=== PATIENT | male | born 1975 | race Caucasian/White ===

== ENCOUNTER 2017-03-25 00:10 | Emergency (ER) | payer OTHER ==
[~2017-03-25] VITALS: Ht 193 cm; Wt 138.3 kg
[~2017-03-25 00:10] MED LIST: GLIPIZIDE; GLUCOPHAGE1000 MG PO; GLUCOTROL5 MG PO; METFORMIN500 MG PO; UNKNOWN BP MED
[2017-03-25 00:28] VITALS: BP 160/100
--- NOTE | 2017-03-25 00:57 | NUR ---
PT TAKEN TO BED 5
--- NOTE | 2017-03-25 01:00 | NUR ---
PT CAME TO ER WITH C/O ABDOMINAL PAIN ASSOCIATED WITH REDNESS AND SWELLING BELOW HIS BELLY FOR 3 DAYS.
--- NOTE | 2017-03-25 01:21 | NUR ---
Dr. Whalen evaluating patient at bedside.
[2017-03-25] MEDS ORDERED: LIDOCAINE 1% 500 MG/50 ML VIAL INJ ONE (01:30)
[2017-03-25] MEDS ORDERED: oxyCODONE/APAP 5/325 MG 1 TAB TAB PO ONE (01:30)
--- NOTE | 2017-03-25 02:30 | NUR ---
DR. VINCENT AT BEDSIDE DOING THE PROCEDURE.
[2017-03-25 02:50] VITALS: BP 149/84
--- NOTE | 2017-03-25 02:50 | NUR ---
Patient discharged with v/s stable. Written and verbal after care instructions given and explained. Patient alert, oriented and verbalized understanding of instructions. Ambulatory with steady gait. All questions addressed prior to discharge. ID band removed. Patient advised to follow up with PMD. Rx of KEFLEX 500MG PO, MOTRIN 800MG PO given. Patient educated on indication of medication including possible reaction and side effects. Opportunity to ask questions provided and answered.
[2017-05-31] MEDS ORDERED: LOSARTAN POTASS50 MG PO (11:23)
[2017-05-31] MEDS ORDERED: JANUVIA100 MG PO (11:23)
[2017-05-31] MEDS ORDERED: LIPITOR40 MG PO (11:23)
[2017-05-31] MEDS ORDERED: ATENOLOL25 M1 PO (11:23)
== END 2017-03-25 02:50 | disposition home or self-care (01) ==
LOC: MED 00:10
DX: L02.211 Cutaneous abscess of abdominal wall (principal); E11.9 Type 2 diabetes mellitus without complications; J45.909 Unspecified asthma, uncomplicated; I10 Essential (primary) hypertension
CPT/HCPCS: 10060; 99284; J2001

== ENCOUNTER 2017-03-25 22:47 | Emergency (ER) | payer OTHER ==
[~2017-03-25] VITALS: Ht 193 cm; Wt 138.3 kg
[2017-03-25 22:58] VITALS: BP 147/90
--- NOTE | 2017-03-26 00:59 | NUR ---
PT TAKEN TO BED 5
--- NOTE | 2017-03-26 01:17 | NUR ---
41/M c/o cellulitis to right lower abdomen x1 day. Pt states he was seen here last night and had it drained. No packing was placed, antibiotics given. Pt states "It's still the same." Pt c/o 710 pain, also c/o elevated blood pressure. BP 153/97, HR 80. Pt c/o headache, denies vision changes. c/o N/V. AOX4, ambulatory with steady gait. Pt is calm and relaxed. No signs of distress noted. VSS. No drainage noted from wound.
--- NOTE | 2017-03-26 01:23 | NUR ---
Dr. Whalen evaluating patient at bedside.
--- NOTE | 2017-03-26 02:25 | NUR ---
Patient appears to be resting comfortably in bed. Vital Signs within normal limits. Respirations even and unlabored.
--- NOTE | 2017-03-26 02:32 | NUR ---
Pt requesting pain medication. Pain 05/07. Dr. Whalen made aware.
--- NOTE | 2017-03-26 02:51 | NUR ---
Ultrasound at bedside.
[2017-03-26] MEDS ORDERED: HYDROmorphone 1 MG/ML AMP IVP ONE ×2 (02:55→04:10)
--- NOTE | 2017-03-26 03:15 | NUR ---
Patient received pain medication. Pt is more relaxed and c/o 3/10 pain. No signs of distress noted. VSS.
[2017-03-26] MEDS ORDERED: LIDOCAINE 1% 500 MG/50 ML VIAL INJ ONE (03:50)
--- NOTE | 2017-03-26 04:35 | NUR ---
Dr. Whalen at bedside for I&D.
--- NOTE | 2017-03-26 05:00 | NUR ---
PT FAMILY CALLED FOR SPECIFICATIONS CHECKER-ETA 20MINS
[2017-03-26 05:37] VITALS: BP 115/66
[2017-05-31] MEDS ORDERED: LIPITOR40 MG PO (11:23)
[2017-05-31] MEDS ORDERED: LOSARTAN POTASS50 MG PO (11:23)
[2017-05-31] MEDS ORDERED: ATENOLOL25 M1 PO (11:23)
[2017-05-31] MEDS ORDERED: JANUVIA100 MG PO (11:23)
== END 2017-03-26 05:38 | disposition home or self-care (01) ==
LOC: MED 22:47
DX: L02.211 Cutaneous abscess of abdominal wall (principal); L03.311 Cellulitis of abdominal wall; E11.65 Type 2 diabetes mellitus with hyperglycemia; I10 Essential (primary) hypertension; E66.9 Obesity, unspecified; Z68.37 Body mass index [BMI] 37.0-37.9, adult
CPT/HCPCS: 10061; 36415; 76536; 80053; 83605; 85025; 87040; 96374; 96376; 99285; J1170; J2001; Q0092

== ENCOUNTER 2017-06-02 00:12 | Emergency (ER) | payer OTHER ==
[~2017-06-02] VITALS: Ht 193 cm; Wt 139.3 kg
[~2017-06-02 00:12] MED LIST changes: +ATEN25TA2 PO; +ATOR40TA PO; +GLIP5TAB4 PO; -GLIPIZIDE; -GLUCOPHAGE1000 MG PO; -GLUCOTROL5 MG PO; +LOSA50TA39 PO; +METF1000 PO; -METFORMIN500 MG PO; +SITA100T8 PO; -UNKNOWN BP MED
[2017-06-02 00:47] VITALS: BP 146/102
--- NOTE | 2017-06-02 04:17 | NUR ---
PATIENT AMBULATED TO ER BED 3.
--- NOTE | 2017-06-02 04:20 | NUR ---
PT WAS EVALUATED LAST SUNDAY FOR ABSCESS ON RIGHT INNER THIGH AND WAS GIVEN KEFLEX,TODAY MORE SWOLLEN AND PAINFUL, HX DM AND HYPERTENSION, PT IS AAOX4 WITH EVEN AND STEADY GAIT; LUNGS CLEAR BL; HR EVEN AND REGULAR; PT DENIES ANY FEVER, CP, SOB, OR COUGH ,DENIES N/V/D; SKIN IS PINK/WARM/DRY; PATIENT STATES PAIN OF 10/10 AT THIS TIME; VSS; PATIENT POSITIONED FOR COMFORT; HOB ELEVATED; BEDRAILS UP X2; BED DOWN. ER MD MADE AWARE OF PT STATUS.
[2017-06-02] MEDS ORDERED: KETOROLAC 60 MG/2 ML VIAL IM ONE (04:30)
--- NOTE | 2017-06-02 04:30 | NUR ---
PATIENT BEING EVALUATED BY DR. VINCENT.
[2017-06-02] MEDS ORDERED: LIDOCAINE/EPI 2% 1:100000 20 ML VIAL INJ ONE (04:52)
[2017-06-02] MEDS: oxyCODONE/APAP 5/325 MG 1 TAB TAB PO ONE ×2 (04:52→05:08)
--- NOTE | 2017-06-02 05:15 | NUR ---
I&D DONE BY DR. CONTRERAS AND RESIDENT, PATIENT TOLERATED WELL.
[2017-06-02 05:32] VITALS: BP 138/72
--- NOTE | 2017-06-02 05:32 | NUR ---
Patient discharged with v/s stable. Written and verbal after care instructions given and explained. Patient alert, oriented and verbalized understanding of instructions. Ambulatory with steady gait. All questions addressed prior to discharge. ID band removed. Patient advised to follow up with PMD. Patient educated on indication of medication including possible reaction and side effects. Opportunity to ask questions provided and answered.
== END 2017-06-02 05:32 | disposition home or self-care (01) ==
LOC: MED 00:12
DX: L02.31 Cutaneous abscess of buttock (principal); L03.317 Cellulitis of buttock; E11.9 Type 2 diabetes mellitus without complications; I10 Essential (primary) hypertension
CPT/HCPCS: 10060; 96372; 99284; J1885; J2001; 10061; 99283

== ENCOUNTER 2017-08-17 21:05 | Emergency (ER) | payer OTHER ==
[~2017-08-17] VITALS: Ht 193 cm; Wt 131.5 kg
[2017-08-17 21:22] VITALS: BP 150/101
--- NOTE | 2017-08-17 21:55 | NUR ---
Patient to bed 11.
[2017-08-17] MEDS ORDERED: LIDOCAINE 1% 500 MG/50 ML VIAL INJ SCH (22:25)
[2017-08-17] MEDS ORDERED: oxyCODONE/APAP 5/325 MG 1 TAB TAB PO ONE (22:25)
--- NOTE | 2017-08-17 22:25 | NUR ---
42/M PRESENTS TO THE ER C/O PAIN, REDNESS AND SWELLING TO THE RT LOWER ABDOMEN. PMH DM, HTN, CELLULITIS. PT IS AA&O X4. PT STATES SYMPTOMS STARTED 3 DAYS AGO AND DESCRIBES PAIN THROBBING, SHARP, CONSTANT PAIN THAT IS WORSE UPON MOVEMENT. PT STATES STARTING TWO YEARS AGO STARTED HAVING RECURRING CELLULITIS EVERY 3-4 MONTHS. PT DENIES FEVER, N/V/D, SOB. ABDOMEN IS SOFT, ROUND, AND TENDER TO RT LOWER SIDE, BOWEL SOUNDS ARE ACTIE IN ALL 4 QUADRANTS. LOWER RT ABDOMEN IS SWOLLEN, RED AND WARM TO TOUCH. PT IS LYING IN BED. ER MD NOTIFIED OF PT STATUS.
--- NOTE | 2017-08-17 22:25 | NUR ---
Dr. Borrero evaluating patient at bedside.
--- NOTE | 2017-08-17 22:30 | NUR ---
Dr. Wilcox at bedside for procedure.
[2017-08-17] MEDS ORDERED: LIDOCAINE 1% ED 50 ML ONE (22:36)
[2017-08-17] MEDS ORDERED: HYDROmorphone PFS 2 MG/ML SYR IM ONE (22:55)
[2017-08-17] MEDS ORDERED: ceFAZolin 1,000 MG VIAL IM ONE (23:50)
[2017-08-17] MEDS ORDERED: NEOMYCIN/POLYMYXIN/BACITRACIN 0.9 GM/1 PKT TP ONE (23:56)
[2017-08-18] MEDS ORDERED: WATER STERILE 10 ML MC ONE (00:06)
--- NOTE | 2017-08-18 00:34 | NUR ---
Patient discharged with v/s stable. Written and verbal after care instructions given and explained. Patient alert, oriented and verbalized understanding of instructions. Ambulatory with steady gait. All questions addressed prior to discharge. ID band removed. Patient advised to follow up with PMD. Rx of DOXYCYCLINE 100MG, NORCO 10MG given. Patient educated on indication of medication including possible reaction and side effects. Opportunity to ask questions provided and answered.
[2017-08-18 00:36] VITALS: BP 176/105
== END 2017-08-18 00:34 | disposition home or self-care (01) ==
LOC: MED 21:05
DX: L02.211 Cutaneous abscess of abdominal wall (principal); L03.311 Cellulitis of abdominal wall; E11.9 Type 2 diabetes mellitus without complications; I10 Essential (primary) hypertension
CPT/HCPCS: 10060; 96372; 99284; J0690; J1170; J2001

== ENCOUNTER 2017-10-20 04:43 | Emergency (ER) | payer OTHER ==
[~2017-10-20] VITALS: Ht 193 cm; Wt 131.5 kg
[2017-10-20 05:09] VITALS: BP 176/100
--- NOTE | 2017-10-20 05:15 | NUR ---
PATIENT RETURNED BACK TO [facility],IN STABLE CONDITION, A/W FOR BED, ERMD NOTED.
--- NOTE | 2017-10-20 05:20 | NUR ---
PATIENT IS A 42 Y/O MALE WHO PRESENTS TO THE ED C/O ABSCESS. PT STATES, "I ALWAYS GET THESE ABSCESSES AND THEY HURT." PT REPORTS 10/10 SHARP ABD PAIN THAT DOES NOT RADIATE. PT DENIES CP, SOB, N/V/D. NOTED REDNESS TO THE RIGHT ABDOMEN. PT AAOX4, RR EVEN/UNLABORED. PT REPOSITIONED FOR COMFORT, BED IN LOWEST POSITION. ER MD DR. ORONA NOTIFIED. WILL CONTINUE TO MONITOR.
--- NOTE | 2017-10-20 07:23 | NUR ---
Pt report given to LULU BUI. Transfer of care at this time.
[2017-10-20] MEDS ORDERED: LIDOCAINE 2% 1000 MG/50 ML VIAL INJ ONE (07:55)
[2017-10-20] MEDS: NACL 0.9% 2,000 ML IV SCH (08:02)
[2017-10-20] MEDS ORDERED: VANCOMYCIN 1,000 MG VIAL ONE (08:16)
[2017-10-20] MEDS: VANCOMYCIN 1,000 MG in DEXTROSE 5% 250 ML IV ONE (08:20)
[2017-10-20] MEDS: MORPHINE SULFATE 4 MG/ML SYR IVP ONE (08:21)
[2017-10-20] MEDS: ONDANSETRON 4 MG/2 ML VIAL IVP ONE (08:22)
[2017-10-20 09:26] LABS: EOSINOPHILS # (AUTO) 0.2 K/uL (0-0.4); HEMOGLOBIN 14.2 g/dL (12.0-18.0); MEAN CORPUSCULAR HGB CONC 33 g/dL (33-37); WHITE BLOOD COUNT (AUTO) 8.9 K/uL (4.8-10.8)
[2017-10-20 09:28] LABS: ANION GAP 9.9 (8-16); BASOPHILS # (AUTO) 0.4 K/uL (0.00-0.22); BASOPHILS % (AUTO) 4.9 % (0.0-2.0); CARBON DIOXIDE 27.5 mmol/L (21-32); CREATININE 0.6 mg/dL (0.7-1.3); EOSINOPHILS % (AUTO) 2.3 % (0.0-4.0); HEMATOCRIT 43.2 % (36-52); LYMPHOCYTES # (AUTO) 2.6 K/uL (2.0-11.5); LYMPHOCYTES % (AUTO) 28.8 % (20.5-51.1); MEAN CORPUSCULAR HEMOGLOBIN 28 pg (27-31); MEAN CORPUSCULAR VOLUME 84 fL (80-94); MONOCYTES # (AUTO) 0.6 K/uL (0.8-1.0); MONOCYTES % (AUTO) 7.3 % (1.7-9.3); NEUTROPHILS # (AUTO) 5.1 K/uL (1.8-7.7); NEUTROPHILS % (AUTO) 56.7 % (42.2-75.2); PLATELET COUNT (AUTO) 139 K/uL (140-450); POTASSIUM 3.4 mmol/L (3.5-5.1); RED BLOOD CELL COUNT(AUTO) 5.15 MIL/uL (4.20-6.10); RED CELL DISTRIBUTION WIDTH 12.7 % (11.6-13.7)
--- NOTE | 2017-10-20 09:36 | NUR ---
Lidocaine given by TABATHA Sesay.
[2017-10-20 09:41] LABS: ALBUMIN 3.4 g/dL (3.4-5.0); TOTAL BILIRUBIN 0.5 mg/dL (0.0-1.0)
[2017-10-20 10:50] VITALS: BP 165/98
--- NOTE | 2017-10-20 10:52 | NUR ---
Patient discharged with v/s stable. Written and verbal after care instructions given and explained. Patient alert, oriented and verbalized understanding of instructions. Ambulatory with steady gait. All questions addressed prior to discharge. ID band removed. Patient advised to follow up with PMD. Rx of bactrium, hibiclens given. Patient educated on indication of medication including possible reaction and side effects. Opportunity to ask questions provided and answered.
== END 2017-10-20 10:52 | disposition home or self-care (01) ==
LOC: MED 04:43
DX: L02.211 Cutaneous abscess of abdominal wall (principal); E11.9 Type 2 diabetes mellitus without complications; I10 Essential (primary) hypertension; Z79.84 Long term (current) use of oral hypoglycemic drugs; Z79.899 Other long term (current) drug therapy
CPT/HCPCS: 10060; 36415; 80053; 82948; 85025; 87040; 87070; 87075; 96365; 96375; 99284; J2001; J2270; J2405; J3370; J7030

== ENCOUNTER 2017-12-09 20:57 | Inpatient (IN) | payer OTHER ==
[~2017-12-09] VITALS: Ht 193 cm; Wt 127.0 kg
[~2017-12-09 20:57] MED LIST changes: +PROPOFOL 200 MG/20 ML VIAL IV ONE; +VANCOMYCIN 1,000 MG VIAL ONE
[2017-12-09 21:00] VITALS: BP 205/116
--- NOTE | 2017-12-09 21:01 | NUR ---
PT TAKEN TO BED 10
--- NOTE | 2017-12-09 21:05 | NUR ---
PT PRESENTS TO ER C/O CHEST PAIN AND RT LOWER ABD ABCESS. PT STATES CHEST PAIN STARTED EARLIER TODAY, PAIN IS GENERALIZED TO CHEST "HEAVINESS". PT HAS ABCESS TO RT LOWER ABD, SKIN IS WARM, RED, DRY, AMD INTACT. PT STATES HE HAS HAD ABCESS FOR "FEW DAYS" AND IT "ALTERNATES SIDES". PT REPORTS HX OF ABCESS FORMATION, DM, HTN. PT DENIES SOB, N/V/D AT THIS TIME.
--- NOTE | 2017-12-09 21:07 | NUR ---
Patient being evaluated by physician at bedside.
[2017-12-09] MEDS ORDERED: VANCOMYCIN 1,000 MG in DEXTROSE 5% 250 ML IV ONE (21:10)
[2017-12-09] MEDS ORDERED: HYDROmorphone PFS 2 MG/ML SYR IVP ONE (21:10)
[2017-12-09] MEDS ORDERED: LIDOCAINE/EPI 2% 1:100000 20 ML VIAL INJ ONE (21:10)
[2017-12-09] MEDS ORDERED: VANCOMYCIN 1,000 MG VIAL ONE (21:17)
[2017-12-09] MEDS ORDERED: INSULIN REGULAR, HUMAN 100 UNIT/ML VIAL IVP ONE (21:20)
--- NOTE | 2017-12-09 21:30 | NUR ---
DR ALVES AT BEDSIDE FOR PROCEDURE.
[2017-12-09] MEDS ORDERED: LEVOFLOXACIN 500 MG/D5W PREMIX 100 ML IV ONE (21:40)
[2017-12-09] MEDS ORDERED: MAG SULF 2000 MG/WATER PREMIX 50 ML IV PRN (21:45)
[2017-12-09] MEDS ORDERED: HYDROcodone/APAP 5/325 MG 1 TAB TAB PO PRN ×2 (21:45)
[2017-12-09] MEDS ORDERED: hydrALAZINE 20 MG/ML VIAL IVP ONE (21:45)
[2017-12-09] MEDS ORDERED: DEXTROSE 50% 50 ML SYR IVP PRN (21:45)
[2017-12-09] MEDS ORDERED: ONDANSETRON 4 MG/2 ML VIAL IVP PRN (21:45)
[2017-12-09] MEDS ORDERED: IPRATROPIUM 0.02% 0.5 MG/2.5 ML NEBU INH PRN (21:45)
[2017-12-09] MEDS ORDERED: diphenhydrAMINE 50 MG/ML VIAL IVP PRN (21:45)
[2017-12-09] MEDS ORDERED: MAGNESIUM OXIDE 400 MG TAB PO PRN (21:45)
[2017-12-09] MEDS ORDERED: guaiFENesin DM 200/20 MG-10 ML 10 ML UDC PO PRN (21:45)
[2017-12-09] MEDS ORDERED: ENALAPRILAT 2.5 MG/2 ML VIAL IVP ONE (21:45)
[2017-12-09] MEDS ORDERED: LORazepam 2 MG/ML VIAL IVP PRN (21:45)
[2017-12-09] MEDS ORDERED: BISACODYL 10 MG SUPP RC PRN (21:45)
[2017-12-09] MEDS ORDERED: ALUMINUM HYD/MAG/SIMETHICONE 30 ML UDC PO PRN (21:45)
[2017-12-09] MEDS ORDERED: ALBUTEROL 0.083% 2.5 MG/3 ML NEBU INH PRN (21:45)
[2017-12-09] MEDS ORDERED: POTASSIUM CHLORIDE 10 MEQ TABER PO PRN (21:45)
[2017-12-09] MEDS ORDERED: SODIUM PHOSPHATE 118 ML ENEM RC PRN (21:45)
[2017-12-09] MEDS ORDERED: POTASSIUM CHLORIDE 40 MEQ, LIDOCAINE 1% 25 MG in NACL 0.9% 250 ML IV PRN (21:45)
[2017-12-09] MEDS ORDERED: VANCOMYCIN PER PHARMACY MC PRN (21:45)
[2017-12-09] MEDS ORDERED: ACETAMINOPHEN 325 MG TAB PO PRN (21:45)
[2017-12-09] MEDS ORDERED: ACETAMINOPHEN 650 MG SUPP RC PRN (21:45)
[2017-12-09] MEDS ORDERED: DOCUSATE SODIUM 250 MG GELCAP PO PRN (21:45)
[2017-12-09 22:01] LABS: HEMATOCRIT 50.8 % (36-52); HEMOGLOBIN 16.2 g/dL (12.0-18.0); MEAN CORPUSCULAR HEMOGLOBIN 27 pg (27-31); MEAN CORPUSCULAR HGB CONC 32 g/dL (33-37); MEAN CORPUSCULAR VOLUME 84 fL (80-94); PLATELET COUNT (AUTO) 158 K/uL (140-450); RED BLOOD CELL COUNT(AUTO) 6.06 MIL/uL (4.20-6.10); RED CELL DISTRIBUTION WIDTH 13.1 % (11.6-13.7); WHITE BLOOD COUNT (AUTO) 11.9 K/uL (4.8-10.8)
[2017-12-09 22:14] LABS: ALBUMIN 4.4 g/dL (3.4-5.0); ANION GAP 13.4 (8-16); CARBON DIOXIDE 29.3 mmol/L (21-32); CREATININE 0.8 mg/dL (0.7-1.3); EOSINOPHILS % (MANUAL) 1 % (0-4); LYMPHOCYTES % (MANUAL) 22 % (20-46); MONOCYTES % (MANUAL) 7 % (5-12); POTASSIUM 3.7 mmol/L (3.5-5.1); TOTAL BILIRUBIN 0.6 mg/dL (0.0-1.0)
--- NOTE | 2017-12-09 22:25 | NUR ---
PT WENT TO RESTROOM TO CHANGE AND INSTRUCTED TO GIVE URINE SAMPLE, PT RETURNED FROM RESTROOM W/ NO SAMPLE AND STATED "I FORGOT". WILL FOLLOW UP FOR URINE SAMPLE.
--- NOTE | 2017-12-09 22:42 | NUR ---
Patient will be admitted to care of DR. CHAVARRIA. Admited to TELE. Will go to room 113. Belongings list completed. Report to
--- NOTE | 2017-12-09 22:42 | NUR ---
REPORTED TO RAMYA JONES THAT PT STILL NEEDS TO SUPPLY URINE SAMPLE. Addendum: 12/09/17 at 2259 by KI IV LEVAQUIN SENT TO FLOOR W/ PT TO START AFTER IV VANCO IS FINSIHED.
--- NOTE | 2017-12-09 23:00 | NUR ---
ADMITTED THIS 42 YEAR OLD MALE FROM ER PER ALEKS WITH CC OF CHEST PAIN AND ABDOMINAL ABSCESS, AMBULATED TO BED WITH STEADY GAIT, ASSESSMENT DONE, ABDOMINAL PAIN 8/10 AT THIS TIME, WILL MEDICATE PRN, RT LOWER ABDOMEN DRESSING DRY AND INTACT, S/P I&D WITH PACKING DONE IN ER, VITAL SIGNS TAKEN, BP SLIGHTLY ELEVATED, DENIES CHEST PAIN, NO SOB NOTED, ORIENTED TO ROOM AND CALL LIGHT, PLAN OF CARE DISCUSS WITH PT AND AT BEDSIDE, PAGED DR GARCIA WITH CARDIAC CCHO DIET ORDER, CALL LIGHT WITHIN REACH.
[2017-12-09] MEDS ORDERED: cefTRIAXone 1,000 MG VIAL ONE (23:14)
[2017-12-09 23:30] VITALS: BP 145/89
[2017-12-09] MEDS: MORPHINE SULFATE 2 MG/ML SYR IVP PRN (23:50)
--- NOTE | 2017-12-09 23:50 | NUR ---
MEDICATED PRN FOR PAIN WITH MORPHINE IVP, VANCOMYCIN IVPB DONE WITH NO REACTION NOTED, LEVAQUIN IVPB INFUSING, MONITORED FOR REACTION, SANDWICH PROVIDED PER REQUEST, ALL NEEDS ATTENDED, MONITORED CLOSELY.
--- NOTE | 2017-12-10 01:10 | NUR ---
ROUNDS MADE, PT SLEEPING, NO SIGNS OF DISTRESS, ROCEPHIN IVPB INFUSING WELL, MONITORED CLOSELY FOR REACTION.
[2017-12-10] MEDS ORDERED: VANCOMYCIN 500 MG VIAL ONE (02:32)
[2017-12-10] MEDS ORDERED: VANCOMYCIN 1,000 MG VIAL ONE (02:33)
[2017-12-10] MEDS: MORPHINE SULFATE 2 MG/ML SYR IVP PRN ×4 (02:49→20:18)
[2017-12-10 02:57] VITALS: BP 165/95
[2017-12-10] MEDS: cloNIDine 0.1 MG TAB PO PRN (02:57)
[2017-12-10 03:00] LABS: APPEARANCE,URINE CLEAR (CLEAR); BILIRUBIN,URINE NEGATIVE (NEGATIVE); BLOOD, URINE NEGATIVE (NEGATIVE); COLOR,URINE YELLOW (YELLOW); LEUKOCYTE ESTERASE ,URINE NEGATIVE (NEGATIVE); NITRITE, URINE NEGATIVE (NEGATIVE); PH,URINE 5.5 (5.0-9.0); UGLUCOSE 3+ (NEGATIVE)
[2017-12-10] MEDS ORDERED: VANCOMYCIN 1,250 MG in DEXTROSE 5% 250 ML IV SCH (03:00)
[2017-12-10 03:18] LABS: RBC,URINE 0-5 (RARE) /HPF (0-5); WBC,URINE 0-5 (RARE) /HPF (0-5)
[2017-12-10 04:30] VITALS: BP 134/77
[2017-12-10] MEDS: glipiZIDE 5 MG TAB PO SCH (06:06)
--- NOTE | 2017-12-10 06:10 | NUR ---
BLOOD SUGAR CHECKED WITH 235 RESULT, COVERAGE GIVEN, DUE PO MED GIVEN, TOLERABLE PAIN AT THIS TIME 02/05, WANTS HIS NEXT DUE MORPHINE AFTER BREAKFAST, WILL ENDORSE, ABDOMINAL DRESSING DRY AND INTACT, MONITORED CLOSELY.
[2017-12-10] MEDS: INSULIN LISPRO SLIDING SCALE 100 UNITS/ML VIAL SUBQ PRN ×4 (06:12→20:34)
[2017-12-10 06:20] LABS: BASOPHILS # (AUTO) 0.2 K/uL (0.00-0.22); EOSINOPHILS # (AUTO) 0.1 K/uL (0-0.4); EOSINOPHILS % (AUTO) 0.8 % (0.0-4.0); HEMATOCRIT 42.9 % (36-52); HEMOGLOBIN 14.2 g/dL (12.0-18.0); LYMPHOCYTES # (AUTO) 2.6 K/uL (2.0-11.5); LYMPHOCYTES % (AUTO) 25.6 % (20.5-51.1); MEAN CORPUSCULAR HEMOGLOBIN 28 pg (27-31); MEAN CORPUSCULAR HGB CONC 33 g/dL (33-37); MEAN CORPUSCULAR VOLUME 83 fL (80-94); MONOCYTES # (AUTO) 0.9 K/uL (0.8-1.0); MONOCYTES % (AUTO) 8.8 % (1.7-9.3); NEUTROPHILS # (AUTO) 6.3 K/uL (1.8-7.7); NEUTROPHILS % (AUTO) 62.8 % (42.2-75.2); PLATELET COUNT (AUTO) 138 K/uL (140-450); RED BLOOD CELL COUNT(AUTO) 5.14 MIL/uL (4.20-6.10); RED CELL DISTRIBUTION WIDTH 13.2 % (11.6-13.7); WHITE BLOOD COUNT (AUTO) 10.1 K/uL (4.8-10.8)
[2017-12-10] MEDS: BLOOD GLUCOSE MONITORING 1 DEV DEV FS SCH ×4 (06:37→20:26)
[2017-12-10 06:52] LABS: ALBUMIN 3.3 g/dL (3.4-5.0); ANION GAP 10.4 (8-16); CARBON DIOXIDE 29.7 mmol/L (21-32); CREATININE 0.8 mg/dL (0.7-1.3); POTASSIUM 4.1 mmol/L (3.5-5.1)
--- NOTE | 2017-12-10 07:25 | NUR ---
PT SLEEPING, NO SIGNS OF PAIN, REPORT GIVEN TO RAMYA QUEZADA FOR CONTINUITY OF CARE.
--- NOTE | 2017-12-10 07:26 | NUR ---
RECEIVED REPORT FROM RESTAURANT BARTENDER NURSE. PATIENT LYING IN BED SLEEPING, AROUSABLE BY VOICE. NO DISTRESS NOTED. DENIES ANY PAIN AT THIS TIME. RESPIRATIONS EVEN, UNLABORED, ON ROOM AIR. AAOX4, CALM, COOPERATIVE, SKIN COLOR APPROPRIATE TO ETHNICITY, WARM TO TOUCH. HAS WOUND ON RLQ OF ABD S/P I&D OF ABDOMINAL WALL ABSCESS YESTERDAY, 12/09/17. DRESSING IS DRY AND INTACT. NO OTHER WOUNDS NOTED THROUGHOUT BODY. LUNGS CTA ON ALL LOBES. ABDOMEN SOFT, NON-DISTENDED. IV SITE INTACT, PATENT, AND INFUSING IVF PER ORDERS. REVIEWED PLAN OF CARE WITH PATIENT. PATIENT VERBALIZED UNDERSTANDING. SAFETY MEASURES IN PLACE, CALL LIGHT WITHIN REACH. WILL CONTINUE TO MONITOR.
[2017-12-10 08:00] VITALS: BP 138/85
[2017-12-10] MEDS ORDERED: metFORMIN 500 MG TAB PO SCH (08:00)
[2017-12-10] MEDS: ATENOLOL 25 MG TAB PO SCH (08:54)
[2017-12-10] MEDS: LOSARTAN 50 MG TAB PO SCH ×2 (08:55→20:40)
--- NOTE | 2017-12-10 09:07 | NUR ---
PATIENT LYING IN BED WATCHING TV. NO DISTRESS NOTED. COMPLAINTS OF 8/10 PAIN ON RLW ABD SURGICAL SITE. MEDICATED WITH MORPHINE. OTHER SCHEDULED MEDICATIONS DUE GIVEN. SAFETY MEASURES IN PLACE, CALL LIGHT WITHIN REACH. WILL CONTINUE TO MONITOR.
--- NOTE | 2017-12-10 09:13 | NUR ---
PATIENT HAS BEEN SCREENED AND CATEGORIZED HIGH NUTRITION RISK. PATIENT WILL BE SEEN WITHIN 1-2 DAYS OF ADMISSION. 12/09/18-12/10/[address]
[2017-12-10] MEDS: NACL 0.9% 1,000 ML IV SCH ×3 (10:13→23:05)
--- NOTE | 2017-12-10 11:20 | NUR ---
CM NOTE INITIAL REVIEW FAXED TO [facility] [phone] VIRGILIO # [phone]
[2017-12-10 11:37] LABS: BARBITURATE, URINE NEG. ng/ml (NEG <=200); BENZODIAZEPINE, URINE NEG. ng/mL (NEG <=200); CANNABINOID, URINE POS. ng/mL (NEG <=50); COCAINE, URINE NEG. ng/mL (NEG <=300); OPIATE, URINE POS. ng/mL (NEG <=2000); PHENCYCLIDINE SCREEN,URINE NEG. ng/mL (NEG <=25)
[2017-12-10 12:00] VITALS: BP 107/54
[2017-12-10] MEDS: VANCOMYCIN 1,250 MG in DEXTROSE 5% 250 ML IV SCH ×2 (12:13→18:38)
--- NOTE | 2017-12-10 13:16 | NUR ---
PATIENT LYING IN BED SLEEPING, AROUSABLE BY VOICE. NO DISTRESS NOTED. DENIES ANY PAIN AT THIS TIME. SCHEDULED MEDICATIONS DUE GIVEN. SAFETY MEASURES IN PLACE, CALL LIGHT WITHIN REACH. WILL CONTINUE TO MONITOR.
--- NOTE | 2017-12-10 15:53 | NUR ---
DR. LIANG AT BEDSIDE REVIEWING PLAN OF CARE WITH PATIENT. WILL CONTINUE TO MONITOR.
[2017-12-10 16:00] VITALS: BP 128/81
--- NOTE | 2017-12-10 16:02 | NUR ---
PLEASE REFER TO NUTRITION ASSESSMENT UNDER CARE ACTIVITY FOR ESTIMATED NUTRITIONAL NEEDS. CONTINUE ANTIHYPERGLYCEMIC MEDS AND CCHO 60 GM DIET FOR GLUCOSE CONTROL. RD TO FOLLOW-UP IN 3-5 DAYS PATIENT IS MODERATE RISK. [address]YLAND SAIN[address]
--- NOTE | 2017-12-10 16:30 | NUR ---
REPACKED RLQ ABDOMINAL WOUND S/P I&D THAT DR. LIANG PULLED OUT AT BEDSIDE. PATIENT TOLERATED WELL. WILL CONTINUE TO MONITOR.
--- NOTE | 2017-12-10 17:15 | NUR ---
PATIENT LYING IN BED. FAMILY MEMBERS AT BEDSIDE. NO DISTRESS NOTED. CONDITION UNCHANGED. WILL CONTINUE TO MONITOR.
--- NOTE | 2017-12-10 18:30 | NUR ---
PATIENT LYING IN BED WATCHING TV WITH FAMILY MEMBERS AT BEDSIDE. CONDITION UNCHANGED. SAFETY MEASURES IN PLACE, CALL LIGHT WITHIN REACH. WILL CONTINUE TO MONITOR.
--- NOTE | 2017-12-10 19:23 | NUR ---
GAVE REPORT TO COMMISSION CLERK NURSE FOR CONTINUITY OF CARE. PATIENT IN STABLE CONDITION.
--- NOTE | 2017-12-10 19:24 | NUR ---
RECD. RESTING IN BED, AWAKE, A/0X4. RESPIRATION EVEN AND UNLABORED. IV OF NS AT 75 ML/HR INFUSING, RIGHT AC G 20. REDNESS NOTED IN THE LOWER ABDOMEN. INCISION IN THE RIGHT LOWER ABDOMEN COVERED WITH DRESSING DRY AND INTACT. PLAN OF CARE FOR THE SHIFT DISCUSSED. VERBALIZED UNDERSTANDING. PAIN IN THE AREA, 11/07, WILL MEDICATE ORDERED.
[2017-12-10 20:10] VITALS: BP 134/79
--- NOTE | 2017-12-10 20:40 | NUR ---
DUE PO MEDICATIONS GIVEN. ATE 80% OF SNACK FOR THE NIGHT.
[2017-12-10] MEDS: ATORVASTATIN 20 MG TAB PO SCH (20:41)
--- NOTE | 2017-12-10 21:00 | NUR ---
Patient's Plan of Care was discussed and reviewed with EMT I/85: KRISTY ISIDRO
--- NOTE | 2017-12-11 | NUR ---
SLEEPING COMFORTABLY IN BED, NPO FOR I & D.
[2017-12-11 00:08] VITALS: BP 128/60
[2017-12-11] MEDS: MORPHINE SULFATE 2 MG/ML SYR IVP PRN ×5 (00:19→21:16)
[2017-12-11] MEDS: VANCOMYCIN 1,250 MG in DEXTROSE 5% 250 ML IV SCH ×3 (02:53→19:42)
[2017-12-11 05:58] LABS: BASOPHILS # (AUTO) 0.4 K/uL (0.00-0.22); BASOPHILS % (AUTO) 4.6 % (0.0-2.0); EOSINOPHILS # (AUTO) 0.2 K/uL (0-0.4); EOSINOPHILS % (AUTO) 1.9 % (0.0-4.0); HEMATOCRIT 44.1 % (36-52); HEMOGLOBIN 14.5 g/dL (12.0-18.0); LYMPHOCYTES # (AUTO) 2.4 K/uL (2.0-11.5); LYMPHOCYTES % (AUTO) 25.7 % (20.5-51.1); MEAN CORPUSCULAR HEMOGLOBIN 28 pg (27-31); MEAN CORPUSCULAR HGB CONC 33 g/dL (33-37); MEAN CORPUSCULAR VOLUME 84 fL (80-94); MONOCYTES # (AUTO) 0.8 K/uL (0.8-1.0); MONOCYTES % (AUTO) 8.5 % (1.7-9.3); NEUTROPHILS # (AUTO) 5.7 K/uL (1.8-7.7); NEUTROPHILS % (AUTO) 59.3 % (42.2-75.2); PLATELET COUNT (AUTO) 119 K/uL (140-450); RED BLOOD CELL COUNT(AUTO) 5.24 MIL/uL (4.20-6.10); RED CELL DISTRIBUTION WIDTH 12.8 % (11.6-13.7); WHITE BLOOD COUNT (AUTO) 9.5 K/uL (4.8-10.8)
[2017-12-11] MEDS: BLOOD GLUCOSE MONITORING 1 DEV DEV FS SCH ×4 (06:43→21:00)
[2017-12-11] MEDS: INSULIN LISPRO SLIDING SCALE 100 UNITS/ML VIAL SUBQ PRN ×3 (06:45→21:12)
--- NOTE | 2017-12-11 06:57 | NUR ---
ABLE TO SLEEP WELL. CONDITION REMAIN STABLE. WILL ENDORSE TO AM NURSE FOR CONTINUITY OF CAFE.
[2017-12-11] MEDS: glipiZIDE 5 MG TAB PO SCH (07:00)
[2017-12-11 07:11] LABS: ALBUMIN 3.2 g/dL (3.4-5.0); ANION GAP 10.6 (8-16); CARBON DIOXIDE 29.5 mmol/L (21-32); CREATININE 0.8 mg/dL (0.7-1.3); POTASSIUM 4.1 mmol/L (3.5-5.1); TOTAL BILIRUBIN 1.1 mg/dL (0.0-1.0)
--- NOTE | 2017-12-11 07:15 | NUR ---
ENDORSED TO RAMYA THOMAS FOR CONTINUITY OF CARE.
--- NOTE | 2017-12-11 07:16 | NUR ---
RECEIVED REPORT FROM TICKET CHOPPER ASSEMBLER NURSE. PATIENT IS AAOX4, NO SIGNS AND SYMPTOMS OF ACUTE DISTRESS NOTED AT THIS TIME. PATIENT HAS IV TO RIGHT AC 20G, INFUSING NS AT 75 ML/HR. SITE IS CLEAN, DRY, PATENT AND INTACT. PATIENT IS SCHEDULED FOR SURGERY TODAY AT 1230, NPO AT THIS TIME. DISCUSSED PLAN OF CARE WITH PATIENT AND HE VERBALIZED UNDERSTANDING. BED IN LOWEST POSITION, SIDE RAILS UP X2, CALL LIGHT WITHIN REACH. WILL CONTINUE TO MONITOR.
[2017-12-11 08:00] VITALS: BP 144/93
[2017-12-11] MEDS: LOSARTAN 50 MG TAB PO SCH ×2 (09:00→21:14)
[2017-12-11] MEDS: ATENOLOL 25 MG TAB PO SCH (09:00)
[2017-12-11] MEDS ORDERED: PROPOFOL 200 MG/20 ML VIAL IV ONE (09:45)
[2017-12-11] MEDS ORDERED: ceFAZolin 1,000 MG VIAL ONE (09:45)
--- NOTE | 2017-12-11 10:35 | NUR ---
CM NOTE CONCURRENT REVIEW FAXED TO [facility] [phone] VIRGILIO # [phone]
--- NOTE | 2017-12-11 11:42 | NUR ---
PATIENTS BLOOD SUGAR IS 169 SPOKE WITH TRUCK DISPATCHERRAMYA VERA TO SEE IF TO HOLD THE INSULIN OR TO GIVE IT. PER ANESTHESIOLOGIST TO HOLD THE INSULIN FOR NOW.
--- NOTE | 2017-12-11 11:45 | NUR ---
PATIENT WAS TAKEN TO THE OR. TRANSFERRED VIA GURNEY. PATIENT IS IN STABLE CONDITION AT THIS TIME.
[2017-12-11] MEDS ORDERED: fentaNYL 0.05 MG/ML VIAL ONE (11:58)
[2017-12-11] MEDS ORDERED: MIDAZOLAM 2 MG/2 ML VIAL ONE (11:59)
[2017-12-11] MEDS ORDERED: BUPIVACAINE-MPF 0.25% 30 ML VIAL INJ ONE (12:01)
[2017-12-11] MEDS: NACL 0.9% 1,000 ML IV SCH ×2 (12:25→13:04)
[2017-12-11] MEDS ORDERED: KETOROLAC 30 MG/ML VIAL ONE (12:52)
[2017-12-11] MEDS ORDERED: KETOROLAC 30 MG/ML VIAL IVP ONE (12:55)
[2017-12-11] MEDS ORDERED: KETOROLAC 30 MG/ML VIAL IVP SCH (13:00)
--- NOTE | 2017-12-11 14:21 | NUR ---
CHANDNI NOTE RECEIVED ORDER FOR HOME HEALTH. FAXED ORDER TO [facility] [phone]. PER [facility] CHANDNI CROCKETT, SEND TO HOME HEALTH CONTACTED WITH IE, [facility]. FAXED INQUIRY TO [facility] AND PER ARIELLE OF [facility] THEY ARE ACCEPTING THE PATIENT AND WILL HAVE A NURSE TO SEE THE PATIENT WHEN DISCHARGED. LEFT MESSAGE FOR [facility] CHANDNI CROCKETT # [phone] INFORMING HER THAT [facility] IS ACCEPTING PATIENT FOR HOME HEALTH.
--- NOTE | 2017-12-11 19:30 | NUR ---
ENDORSED PATIENT TO NIGHT RN FOR CONTINUITY OF CARE. PATIENT IN STABLE CONDITION.
--- NOTE | 2017-12-11 19:31 | NUR ---
PATIENT REPORT RECEIVED FROM MORNING NURSE AT BEDSIDE. PATIENT IS AWAKE, ALERT AND ORIENTED. NO SIGNS AND SYMPTOMS OF DISTRESS NOTED. DRESSING NOTED ON RIGHT LOWER ABDOMEN, DRESSING DRY AND INTACT. IV SITE NOTED ON LEFT FOREARM. IVF INFUSING WELL. PLAN OF CARE DISCUSSED WITH PATIENT, PATIENT VERBALIZED UNDERSTANDING. BED IN LOWEST POSITION, SIDE RAILS UP AND CALL LIGHT WITHIN REACH. WILL CONTINUE TO MONITOR.
[2017-12-11 20:00] VITALS: BP 142/76
[2017-12-11] MEDS: ATORVASTATIN 20 MG TAB PO SCH (21:14)
--- NOTE | 2017-12-12 | NUR ---
CHECKED ON PATIENT. PATIENT IS ASLEEP. NO SIGNS AND SYMPTOMS OF DISTRESS NOTED. BREATHING EVEN AND UNLABORED. WILL CONTINUE TO MONITOR.
[2017-12-12] MEDS: NACL 0.9% 1,000 ML IV SCH (02:43)
[2017-12-12] MEDS: VANCOMYCIN 1,250 MG in DEXTROSE 5% 250 ML IV SCH (02:44)
--- NOTE | 2017-12-12 03:26 | NUR ---
CHECKED ON PATIENT. PATIENT IS ASLEEP. NO SIGNS AND SYMPTOMS OF DISTRESS NOTED. BREATHING EVEN AND UNLABORED. WILL CONTINUE TO MONITOR.
[2017-12-12 04:00] VITALS: BP 148/95
[2017-12-12] MEDS ORDERED: MORPHINE SULFATE 2 MG/ML SYR ONE (04:37)
[2017-12-12] MEDS: MORPHINE SULFATE 2 MG/ML SYR IVP PRN ×4 (04:49→21:17)
[2017-12-12 06:22] LABS: HEMATOCRIT 44.6 % (36-52); HEMOGLOBIN 14.7 g/dL (12.0-18.0); MEAN CORPUSCULAR HEMOGLOBIN 28 pg (27-31); MEAN CORPUSCULAR HGB CONC 33 g/dL (33-37); MEAN CORPUSCULAR VOLUME 84 fL (80-94); PLATELET COUNT (AUTO) 166 K/uL (140-450); RED BLOOD CELL COUNT(AUTO) 5.32 MIL/uL (4.20-6.10); RED CELL DISTRIBUTION WIDTH 13.7 % (11.6-13.7); WHITE BLOOD COUNT (AUTO) 8.8 K/uL (4.8-10.8)
[2017-12-12 06:23] LABS: BASOPHILS # (AUTO) 0.1 K/uL (0.00-0.22); BASOPHILS % (AUTO) 0.6 % (0.0-2.0); EOSINOPHILS # (AUTO) 0.2 K/uL (0-0.4); EOSINOPHILS % (AUTO) 2.3 % (0.0-4.0); LYMPHOCYTES # (AUTO) 2.2 K/uL (2.0-11.5); LYMPHOCYTES % (AUTO) 25.4 % (20.5-51.1); MONOCYTES # (AUTO) 0.7 K/uL (0.8-1.0); MONOCYTES % (AUTO) 8.4 % (1.7-9.3); NEUTROPHILS # (AUTO) 5.5 K/uL (1.8-7.7); NEUTROPHILS % (AUTO) 63.3 % (42.2-75.2)
[2017-12-12] MEDS: glipiZIDE 5 MG TAB PO SCH (06:23)
[2017-12-12] MEDS: BLOOD GLUCOSE MONITORING 1 DEV DEV FS SCH ×4 (06:43→21:08)
[2017-12-12] MEDS: INSULIN LISPRO SLIDING SCALE 100 UNITS/ML VIAL SUBQ PRN ×2 (06:44→21:15)
[2017-12-12 06:47] LABS: ALBUMIN 3.3 g/dL (3.4-5.0); ANION GAP 9.5 (8-16); CARBON DIOXIDE 29.3 mmol/L (21-32); CREATININE 0.8 mg/dL (0.7-1.3); POTASSIUM 3.8 mmol/L (3.5-5.1); TOTAL BILIRUBIN 1.1 mg/dL (0.0-1.0)
--- NOTE | 2017-12-12 07:20 | NUR ---
PATIENT REPORT GIVEN TO MORNING NURSE AT BEDSIDE. PATIENT IS IN STABLE CONDITION
--- NOTE | 2017-12-12 07:21 | NUR ---
REPORT RECEIVED FROM HEEL FORMER NURSE AT BEDSIDE FOR CONTINUITY OF CARE. UPDATED BOARD. PATIENT IS ASLEEP. NO SIGNS AND SYMPTOMS OF DISTRESS NOTED. DRESSING NOTED ON RIGHT LOWER ABDOMEN, DRESSING DRY AND INTACT. IV SITE NOTED ON LEFT FOREARM, 22G, ASYMPTOMATIC, PATENT, AND INTACT. IVF NS AT 75 ML/HR. SAFETY PRECAUTIONS IN PLACE, BED IN LOWEST POSITION, SIDE RAILS UP AND CALL LIGHT WITHIN REACH. WILL CONTINUE TO MONITOR PATIENT.
[2017-12-12 08:00] VITALS: BP 150/100
[2017-12-12] MEDS: LOSARTAN 50 MG TAB PO SCH ×2 (08:39→21:07)
--- NOTE | 2017-12-12 08:39 | NUR ---
MORNING MEDICATIONS GIVEN. PATIENT TOLERATED THEM WELL. NO SIGNS OF DISTRESS OR SOB NOTED. SAFETY PRECAUTIONS IN PLACE, CALL LIGHT WITHIN REACH, WILL CONTINUE TO MONITOR PATIENT.
[2017-12-12] MEDS: ATENOLOL 25 MG TAB PO SCH (08:40)
--- NOTE | 2017-12-12 09:02 | NUR ---
PATIENT C/O PAIN 07/08 D/T S/P I&D ON 12/11/17. MORPHINE PRN GIVEN. PATIENT TOLERATED IT WELL. SAFETY PRECAUTIONS IN PLACE, CALL LIGHT WITHIN REACH, WILL CONTINUE TO MONITOR PATIENT.
--- NOTE | 2017-12-12 09:37 | NUR ---
CM NOTE CONCURRENT REVIEW FAXED TO [facility] [phone] VIRGILIO PH# [phone]. PER ROM[facility] PH# [phone], FOR [facility]# [id number].
[2017-12-12 10:33] LABS: ANION GAP 10.3 (8-16); CARBON DIOXIDE 29.6 mmol/L (21-32); CREATININE 0.8 mg/dL (0.7-1.3); POTASSIUM 3.9 mmol/L (3.5-5.1)
--- NOTE | 2017-12-12 11:05 | NUR ---
PATIENT RESTING IN BED, WATCHING TV. NO SIGNS OF DISTRESS OR SOB NOTED. PATIENT DENIES PAIN. SAFETY PRECAUTIONS IN PLACE, CALL LIGHT WITHIN REACH, WILL CONTINUE TO MONITOR PATIENT.
--- NOTE | 2017-12-12 13:45 | NUR ---
WOUND EVALUATION NOTE: REASON FOR WOUND EVALUATION: S/P I&D RLQ ABDOMEN SKIN ASSESSMENT DONE ON THIS 42 Y/O MALE PATIENT FROM HOME TO [facility], WITH INITIAL DIAGNOSIS OF RECURRENT ABDOMINAL ABSCESS. PAST MEDICAL HISTORY INCLUDE HTN, DM, HLD AND OBESITY. ALL ABOVE INFORMATION WAS OBTAINED FROM THE ADMISSION H&P AND PT. LABS ARE WBC 8.8, H/H 14.5/44.1, GLUCOSE 218, ALBUMIN 3.2. PT/INR 10.9/1.0 AND PTT 26.3. PATIENT IS AWAKE, ORIENTED TO PERSON, PLACE AND TIME. SKIN WARM TO TOUCH WNL, TOENAILS ARE SLIGHTLY THICKENED, NO EDEMA, BLE WITH HAIR GROWTH AND NORMAL PEDAL PULSES. ABLE TO TURN SELF WITHOUT ASSISTANCE. PLAN OF CARE DISCUSSED WITH PRIMARY RN AND PT. PT. VERBALIZES UNDERSTAND. INTEGUMENTARY: -RLQ ABDOMINAL S/P I&D SURGICAL WOUND 2X8X2 CM, WOUND BED RED WITH SMALL AMOUNT OF SANGUINEOUS DRAINAGE WITH NO ODOR AFTER WOUND IS CLEANED, WOUND EDGE IS WELL DEFINED, CLARISA WOUND INTACT, PAIN LEVEL 5/10, PT IS MEDICATED PRIOR [place]. RECOMMENDATIONS: -HOME HEALTH TO FOLLOW FOR WOUND CARE UPON DISCHARGED -CLEANSE RLQ ABDOMEN SURGICAL SITE WITH NS. PAT DRY,PACK WOUND WITH IODOFORM, COVER WITH ABDOMEN PAD SECURE WITH TAPE QD WC AND PRN IF SOILING -ASSESS AND MONITOR SKIN CONDITION DURING POSITION CHANGE, PLEASE PAY ATTENTION TO RLQ ABDOMEN SURGICAL WOUND -KEEP SKIN CLEAN AND DRY AT ALL TIMES. -PT. WAS INSTRUCTED TO HOLD ABDOMEN WHEN COUGH OR TURN/REPOSITION - MAY DISCHARGE PT WITH 2 WEEKS IODOFORM SUPPLY RECOMMENDATIONS DISCUSSED WITH PRIMARY RN PLEASE CONTACT WOUND CARE NURSE FOR ANY QUESTIONS AND CHANGES IN WOUND CONDITION.
[2017-12-12 16:00] VITALS: BP 157/91
--- NOTE | 2017-12-12 16:07 | NUR ---
PATIENT C/O HEADACHE, TYLENOL PRN GIVEN. PATIENT TOLERATED IT WELL. WILL CONTINUE TO MONITOR. SAFETY PRECAUTIONS IN PLACE, CALL LIGHT WITHIN REACH, WILL CONTINUE TO MONITOR PATIENT.
--- NOTE | 2017-12-12 16:28 | NUR ---
PATIENT C/O PAIN 06/07 D/T S/P I&D. MORPHINE PRN GIVEN. PATIENT TOLERATED IT WELL. SAFETY PRECAUTIONS IN PLACE, CALL LIGHT WITHIN REACH, WILL CONTINUE TO MONITOR PATIENT.
[2017-12-12] MEDS: cloNIDine 0.1 MG TAB PO PRN (16:49)
[2017-12-12] MEDS: VANCOMYCIN HCL 1,500 MG in DEXTROSE 5% 500 ML IV SCH (17:26)
--- NOTE | 2017-12-12 17:30 | NUR ---
LUIS FROM LAB CALLED TO VERIFY VANCO TROUGH AT 9.9. ALSO VERIFIED BY PHARMACIST, GREG. KEY IVPB ADMINITERED. PATIENT TOLERATED IT WELL. SAFETY PRECAUTIONS IN PLACE, CALL LIGHT WITHIN REACH, WILL CONTINUE TO MONITOR PATIENT.
--- NOTE | 2017-12-12 19:05 | NUR ---
PATIENT'S BP AT 1600: 157/91, ALSO C/O SPAULDING, TYLENOL PRN GIVEN. BP AT 1649: 164/102, CATAPRESS PRN GIVEN. PATIENT TOLERATED IT WELL. BP AT 1819: 151/84. BP AT 1700: 139/74. SAFETY PRECAUTIONS IN PLACE, CALL LIGHT WITHIN REACH, WILL CONTINUE TO MONITOR PATIENT.
--- NOTE | 2017-12-12 19:20 | NUR ---
REPORT GIVEN TO NEWSPAPER CARRIER NURSE AT BEDSIDE FOR CONTINUITY OF CARE. PATIENT IN STABLE CONDITION.
--- NOTE | 2017-12-12 19:35 | NUR ---
RECEIVED FROM AM RN IN BED WITH VISITOR VISITING. ABLE TO VERBALIZE NEEDS WELL. NO SOB. NO PAIN COMPLAINTS AT THIS TIME. PT. S/P I AND D TO ABCESS ABDOMINAL WALL. DRESSING INTACT AND NO BLEEDING. IVF SITE TO LEFT FOREARM INTACT AND NO INFILTRATION NOTED. CALL LIGHT WITH IN REACH. CARE PLANS FOR THE NIGHT DISCUSSED WITH HIM AND TO USE CALL LIGHT FOR ANY HELP HE MAY NEED OR IF IN PAIN. A/O X4. ROM X 4. CLEAR SPEECH.
[2017-12-12] MEDS: ATORVASTATIN 20 MG TAB PO SCH (21:07)
[2017-12-12] MEDS: ZOLPIDEM 5 MG TAB PO PRN (21:17)
[2017-12-12 21:29] VITALS: BP 115/70
[2017-12-12 21:33] VITALS: BP 115/70
--- NOTE | 2017-12-12 23:31 | NUR ---
PT. SLEEPING AT THIS TIME. NO RESTLESSNESS. CALL LIGHT WITH IN REACH AT ALL TIMES. MIDNIGHT SNACK PROVIDED EARLIER AND ABLE TO FINISH ALL OF IT.
[2017-12-13] MEDS: VANCOMYCIN HCL 1,500 MG in DEXTROSE 5% 500 ML IV SCH ×2 (00:19→09:17)
--- NOTE | 2017-12-13 02:30 | NUR ---
PT. ENDORSED TO THE NEXT NURSE FOR CONTINUITY OF CARE. SLEEPING BUT WAKES UP EASILY WHEN TOUCHED OR CALLED BY NAME.
--- NOTE | 2017-12-13 02:31 | NUR ---
RECD. SLEEPING COMFORTABLY, RESPIRATION EVEN AND UNLABORED. IV OF NS AT 100 ML/HR INFUSING, LEFT FA G20. NO RESPIRATORY DISTRESS NOTED. NO APPEARANCE OF PAIN 0/10.
[2017-12-13 04:00] VITALS: BP 143/93
[2017-12-13] MEDS: BLOOD GLUCOSE MONITORING 1 DEV DEV FS SCH ×4 (06:32→20:48)
[2017-12-13] MEDS: INSULIN LISPRO SLIDING SCALE 100 UNITS/ML VIAL SUBQ PRN ×2 (06:33→20:49)
[2017-12-13] MEDS: glipiZIDE 5 MG TAB PO SCH (06:37)
--- NOTE | 2017-12-13 06:50 | NUR ---
CONDITION REMAIN STABLE. DUE PO MEDICATION IN THE MORNING TOLERATED WELL. WENT BACK TO SLEEP AFTER MEDICATION GIVEN. WILL ENDORSE TO AM NURSE FOR CONTINUITY OF CARE.
--- NOTE | 2017-12-13 07:10 | NUR ---
REPORT RECEIVED FROM QUALITY CONTROL COORDINATOR NURSE AT BEDSIDE FOR CONTINUITY OF CARE. UPDATED BOARD. PATIENT IS ASLEEP. NO SIGNS AND SYMPTOMS OF DISTRESS NOTED. DRESSING NOTED ON RIGHT LOWER ABDOMEN, DRESSING DRY AND INTACT. IV SITE NOTED ON LEFT FOREARM, 22G INFILTRATED. PT C/O SLIGHT PAIN ON ARM. SAFETY PRECAUTIONS IN PLACE, BED IN LOWEST POSITION, SIDE RAILS UP AND CALL LIGHT WITHIN REACH. WILL CONTINUE TO MONITOR PATIENT.
[2017-12-13] MEDS: LOSARTAN 50 MG TAB PO SCH ×2 (08:08→20:49)
[2017-12-13] MEDS: ATENOLOL 25 MG TAB PO SCH (08:08)
--- NOTE | 2017-12-13 08:11 | NUR ---
ADMINISTER MORNING MEDICATIONS. PATIENT TOLERATED THEM WELL. NO SIGNS OF DISTRESS OR SOB NOTED. SAFETY PRECAUTIONS IN PLACE, CALL LIGHT WITHIN EASY REACH. WILL CONTINUE TO MONITOR PATIENT.
[2017-12-13] MEDS: MORPHINE SULFATE 2 MG/ML SYR IVP PRN ×2 (09:18→21:02)
--- NOTE | 2017-12-13 09:23 | NUR ---
NEW IV ON R HAND 20G, PATENT, ASYMPTOMATIC, AND INTACT. PATIENT C/O 07/08 PAIN D/T I&D ON 12/11/17 INCISION. MORPHINE PRN GIVEN. VANCO IVPB ALSO RUNNING. PATIENT TOLERATED IT WELL. SAFETY PRECAUTIONS IN PLACE, CALL LIGHT WITHIN REACH. WILL CONTINUE TO MONITOR PATIENT.
--- NOTE | 2017-12-13 09:58 | NUR ---
CM NOTE CONCURRENT REVIEW FAXED TO [facility] [phone] [place] # [phone] ACCEPTING HOME HEALTH IS [facility] CHARGE NURSE RHEA SHELDON
--- NOTE | 2017-12-13 12:30 | NUR ---
PATIENT RESTING IN BED, NO SIGNS OF DISTRESS NOTED. PATIENT DENIES PAIN. SAFETY PRECAUTIONS IN PLACE, WILL CONTINUE TO MONITOR PATIENT.
[2017-12-13] MEDS: NACL 0.9% IRR 250 ML BOTTLE IR SCH (13:49)
[2017-12-13 13:56] LABS: HEMATOCRIT 44.4 % (36-52); HEMOGLOBIN 14.4 g/dL (12.0-18.0); MEAN CORPUSCULAR HEMOGLOBIN 27 pg (27-31); MEAN CORPUSCULAR HGB CONC 32 g/dL (33-37); MEAN CORPUSCULAR VOLUME 84 fL (80-94); PLATELET COUNT (AUTO) 122 K/uL (140-450); RED BLOOD CELL COUNT(AUTO) 5.28 MIL/uL (4.20-6.10); RED CELL DISTRIBUTION WIDTH 13.1 % (11.6-13.7); WHITE BLOOD COUNT (AUTO) 8.7 K/uL (4.8-10.8)
[2017-12-13 14:10] LABS: ALBUMIN 3.3 g/dL (3.4-5.0); ANION GAP 10.3 (8-16); CARBON DIOXIDE 30.1 mmol/L (21-32); CREATININE 2.3 mg/dL (0.7-1.3); POTASSIUM 4.4 mmol/L (3.5-5.1); TOTAL BILIRUBIN 0.9 mg/dL (0.0-1.0)
--- NOTE | 2017-12-13 14:35 | NUR ---
PATIENT RESTING IN BED, NO SIGNS OF DISTRESS NOTED. PATIENT DENIES PAIN. SAFETY PRECAUTIONS IN PLACE, WILL CONTINUE TO MONITOR PATIENT.
[2017-12-13 14:36] LABS: EOSINOPHILS % (MANUAL) 1 % (0-4); LYMPHOCYTES % (MANUAL) 17 % (20-46); MONOCYTES % (MANUAL) 3 % (5-12)
[2017-12-13 16:00] VITALS: BP 171/94
[2017-12-13] MEDS ORDERED: VANCOMYCIN HCL 1,500 MG in DEXTROSE 5% 500 ML IV SCH (17:00)
--- NOTE | 2017-12-13 17:25 | NUR ---
VANCOMYCIN IVPB ADMINISTERED. PATIENT TOLERATED IT WELL. PATIENT RESTING IN BED, NO SIGNS OF DISTRESS NOTED. PATIENT DENIES PAIN. SAFETY APRECAUTIONS IN PLACE, WILL CONTINUE TO MONITOR PATIENT.
[2017-12-13] MEDS: cloNIDine 0.1 MG TAB PO PRN (17:26)
--- NOTE | 2017-12-13 19:15 | NUR ---
REPORT GIVEN TO WASHING TUB OPERATOR NURSE AT BEDSIDE FOR CONTINUITY OF CARE. PATIENT IN STABLE CONDITION.
--- NOTE | 2017-12-13 19:30 | NUR ---
RECEIVED FROM AM RN IN BED AWAKE AND ALERT. SPOUSE AT BEDSIDE VISITING. NO COMPLAINTS AT THIS TIME. DENIES PAIN. ENCOURAGED TO CALL FOR ANY HELP HE MAY NEED. DRESSING TO ABDOMEN INTACT AND NO BLEEDING. A/O X 4. ROM X 4.
[2017-12-13 20:00] VITALS: BP 148/94
[2017-12-13] MEDS: ATORVASTATIN 20 MG TAB PO SCH (20:50)
[2017-12-13] MEDS: ZOLPIDEM 5 MG TAB PO PRN (21:02)
[2017-12-14] MEDS: MORPHINE SULFATE 2 MG/ML SYR IVP PRN (00:36)
--- NOTE | 2017-12-14 00:44 | NUR ---
PT. SLEEPING WELL. NO COMPLAINTS DONE. CALL LIGHT WITH IN REACH. A/O X 4. MEDICATED WITH PAIN RELIEVER EARLIER REQUESTED. NO BLEEDING TO DRESSING ABDOMEN LOWER PART.
[2017-12-14 03:56] VITALS: BP 112/73
[2017-12-14] MEDS: BLOOD GLUCOSE MONITORING 1 DEV DEV FS SCH ×2 (05:39→11:50)
[2017-12-14] MEDS: glipiZIDE 5 MG TAB PO SCH (05:43)
--- NOTE | 2017-12-14 06:06 | NUR ---
PT. WAKES UP WHEN CALLED BY NAME EASILY. NO COMPLAINTS DONE.
[2017-12-14 08:00] VITALS: BP 140/76
[2017-12-14] MEDS: LOSARTAN 50 MG TAB PO SCH (09:12)
[2017-12-14] MEDS: ATENOLOL 25 MG TAB PO SCH (09:13)
--- NOTE | 2017-12-14 09:46 | NUR ---
CM NOTE CONCURRENT REVIEW FAXED TO [facility] [phone] VIRGILIO # [phone]
[2017-12-14] MEDS ORDERED: MORPHINE SULFATE 4 MG/ML SYR IVP PRN (10:42)
[2017-12-14] MEDS: NACL 0.9% IRR 250 ML BOTTLE IR SCH (13:00)
--- NOTE | 2017-12-14 14:29 | NUR ---
PATIENT SIGNED AMA. PATIENT SEEN BY DR CHAVARRIA AND WAS EDUCATED ABOUT THE RISKS OF SIGNING OUT AMA. PATIENT INSTRUCTED TO FOLLOW UP WITH HIS PRIMARY DOCTOR IF HE DECIDES TO LEAVE AMA. PATIENT LEFT WITH ALL HIS BELONGINGS. IV LINE DISCONTINUED. PATIENT GIVEN SUPPLIES FOR WOUND DRESSING
== END 2017-12-14 14:29 | disposition left against medical advice (07) | DRG 364 ==
LOC: MED 20:57 → MTU 21:42 → UNDOADMIN 21:42
PROVIDERS: ADMIT Hospitalist; ATTEND Hospitalist
PROC: 0W9F0ZZ Drainage of Abdominal Wall, Open Approach (ICD-10-PCS; principal; 2017-12-09)
PROC: 0W9F0ZZ Drainage of Abdominal Wall, Open Approach (ICD-10-PCS; 2017-12-11)
DX: L03.311 Cellulitis of abdominal wall (principal); E11.65 Type 2 diabetes mellitus with hyperglycemia; D69.6 Thrombocytopenia, unspecified; L02.211 Cutaneous abscess of abdominal wall; I10 Essential (primary) hypertension; E78.5 Hyperlipidemia, unspecified; Z53.21 Procedure and treatment not carried out due to patient leaving prior to being seen by health care provider; F12.10 Cannabis abuse, uncomplicated; E66.9 Obesity, unspecified; Z68.34 Body mass index [BMI] 34.0-34.9, adult; Z86.14 Personal history of Methicillin resistant Staphylococcus aureus infection
CPT/HCPCS: 36415; 71045; 80048; 80053; 80202; 80305; 81001; 82948; 83036; 85025; 87070; 87075; 87081; 93005; 96374; 96375; 99285; J0360; J0690; J0696; J1170; J1815; J1885; J1956; J2001; J2250; J2270; J2704; J3010; J3370; J3490; J7030; J7060; Q0092

== ENCOUNTER 2018-01-03 19:35 | Emergency (ER) | payer OTHER ==
[~2018-01-03] VITALS: Ht 193 cm; Wt 131.5 kg
[~2018-01-03 19:35] MED LIST changes: -PROPOFOL 200 MG/20 ML VIAL IV ONE; -VANCOMYCIN 1,000 MG VIAL ONE
[2018-01-03 19:54] VITALS: BP 157/85
--- NOTE | 2018-01-03 21:25 | NUR ---
42/M CAME IN W C/O ABSCESS TO LLQ ABD X 2 DAYS. ABSCESS TO LLQ NOTED, INTACT, WARM TO TOUCH. PT HAD HX OF ABSCESS TO RLQ ABD WHICH REQUIRED SURGERY ON NOVEMBER. DENIES FEVER/CHILLS, N/V/D. PMH: HTN, DM
[2018-01-03] MEDS ORDERED: LIDOCAINE 1% 500 MG/50 ML VIAL INJ SCH (21:45)
[2018-01-03] MEDS ORDERED: LIDOCAINE MPF 1% - **ER/OR** 10 ML ONE (21:54)
--- NOTE | 2018-01-03 22:25 | NUR ---
Patient discharged with v/s stable. Written and verbal after care instructions given and explained. Patient alert, oriented and verbalized understanding of instructions. Ambulatory with steady gait. All questions addressed prior to discharge. ID band removed. Patient advised to follow up with PMD. Rx of CLINDAMYCIN, KEFLEX AND MOTRIN given. Patient educated on indication of medication including possible reaction and side effects. Opportunity to ask questions provided and answered.
[2018-01-03 22:29] VITALS: BP 134/98
--- NOTE | 2018-01-03 22:50 | NUR ---
ABD WOUND/ABSCESS SWAB SENT TO LAB
== END 2018-01-03 22:25 | disposition home or self-care (01) ==
LOC: MED 19:35
DX: L02.211 Cutaneous abscess of abdominal wall (principal); E11.9 Type 2 diabetes mellitus without complications; I10 Essential (primary) hypertension
CPT/HCPCS: 10060; 82948; 99283; J2001

== ENCOUNTER 2018-03-20 10:14 | Emergency (ER) | payer OTHER ==
[~2018-03-20] VITALS: Ht 193 cm; Wt 148.8 kg
[2018-03-20 10:17] VITALS: BP 153/88
[2018-03-20 10:24] VITALS: BP 153/88
[2018-03-20] MEDS: IBUPROFEN 800 MG TAB PO ONE (11:42)
[2018-03-20] MEDS: CEPHALEXIN 500 MG CAP PO ONE (11:42)
[2018-03-20] MEDS: SULFAMETH/TRIMETH DS 800/160MG 1 TAB PO ONE (11:42)
[2018-03-20] MEDS: LIDOCAINE 2% 1000 MG/50 ML VIAL INJ ONE (13:16)
== END 2018-03-20 13:20 | disposition home or self-care (01) ==
LOC: MED 10:14
DX: L02.211 Cutaneous abscess of abdominal wall (principal); E11.9 Type 2 diabetes mellitus without complications; I10 Essential (primary) hypertension; Z79.899 Other long term (current) drug therapy; Z79.84 Long term (current) use of oral hypoglycemic drugs
CPT/HCPCS: 10060; 87070; 87075; 99284; J2001

== ENCOUNTER 2018-09-06 19:42 | Emergency (ER) | payer OTHER ==
[~2018-09-06] VITALS: Ht 193 cm; Wt 146.1 kg
[~2018-09-06 19:42] MED LIST changes: +LOSA50TA27 PO; -LOSA50TA39 PO
[2018-09-06 19:43] VITALS: BP 142/93
--- NOTE | 2018-09-06 19:51 | NUR ---
Patient ambulated to bed 6. RN evaluating patient at bedside.
--- NOTE | 2018-09-06 19:58 | NUR ---
PT PRESENTS TO ED WITH C/O ABD PAIN WITH N/V AND BLACK STOOL X 3 DAYS. ABDOMEN IS NON-TENDER, BOWEL SOUNDS ACTIVE X 4 QUADRANTS. PT PLACED IN BED, PENDING MD ALEX.
[2018-09-06 21:05] LABS: BASOPHILS # (AUTO) 0.1 K/uL (0.00-0.22); BASOPHILS % (AUTO) 0.5 % (0.0-2.0); EOSINOPHILS # (AUTO) 0.1 K/uL (0-0.4); EOSINOPHILS % (AUTO) 1.5 % (0.0-4.0); HEMATOCRIT 33.7 % (36-52); LYMPHOCYTES # (AUTO) 3.7 K/uL (2.0-11.5); LYMPHOCYTES % (AUTO) 37.3 % (20.5-51.1); MEAN CORPUSCULAR HEMOGLOBIN 28 pg (27-31); MEAN CORPUSCULAR HGB CONC 33 g/dL (33-37); MEAN CORPUSCULAR VOLUME 84.4 fL (80-94); MONOCYTES # (AUTO) 0.6 K/uL (0.8-1.0); MONOCYTES % (AUTO) 6.5 % (1.7-9.3); NEUTROPHILS # (AUTO) 5.3 K/uL (1.8-7.7); NEUTROPHILS % (AUTO) 54.2 % (42.2-75.2); RED BLOOD CELL COUNT(AUTO) 3.99 MIL/uL (4.20-6.10); WHITE BLOOD COUNT (AUTO) 9.8 K/uL (4.8-10.8)
[2018-09-06 21:24] LABS: PLATELET COUNT (AUTO) 107 K/uL (140-450)
--- NOTE | 2018-09-06 21:26 | NUR ---
PT RESTING IN BED. NO NEW COMPLAINTS OR CONCERNS. VSS.
[2018-09-06] MEDS ORDERED: NACL 0.9% 1,000 ML IV SCH (22:02)
[2018-09-06] MEDS ORDERED: ONDANSETRON 4 MG/2 ML VIAL IVP ONE (22:05)
[2018-09-06] MEDS ORDERED: MORPHINE SULFATE 4 MG/ML SYR IVP ONE (22:05)
[2018-09-06 22:54] LABS: PROTHROMBIN TIME 9.8 secs (10.8-13.4)
[2018-09-06 23:06] LABS: CARBON DIOXIDE 30.2 mmol/L (21-32); CREATININE 0.9 mg/dL (0.7-1.3); POTASSIUM 5.2 mmol/L (3.5-5.1)
[2018-09-06 23:06] LABS: APPEARANCE,URINE CLEAR (CLEAR); BILIRUBIN,URINE NEGATIVE (NEGATIVE); BLOOD, URINE NEGATIVE (NEGATIVE); COLOR,URINE YELLOW (YELLOW); LEUKOCYTE ESTERASE ,URINE NEGATIVE (NEGATIVE); NITRITE, URINE NEGATIVE (NEGATIVE); UGLUCOSE 2+ (NEGATIVE)
[2018-09-06 23:07] LABS: RBC,URINE 0-5 (RARE) /HPF (0-5); WBC,URINE 0-5 (RARE) /HPF (0-5)
[2018-09-06 23:12] LABS: ALBUMIN 3.4 g/dL (3.4-5.0); TOTAL BILIRUBIN 0.2 mg/dL (0.0-1.0)
--- NOTE | 2018-09-06 23:14 | NUR ---
PT SLEEPING. NO FURTHER COMPLAINTS OR QUESTIONS AT THIS TIME. VSS. WILL CONTINUE TO MONITOR.
--- NOTE | 2018-09-06 23:27 | NUR ---
PT TO CT VIA GO
[2018-09-07] MEDS ORDERED: FAMOTIDINE 20 MG/2 ML VIAL IVP ONE ×2 (00:35→00:55)
[2018-09-07] MEDS ORDERED: PANTOPRAZOLE 40 MG INJ VIAL IVP ONE ×2 (00:35→00:55)
[2018-09-07] MEDS ORDERED: FAMOTIDINE 20 MG/2 ML VIAL ONE (01:02)
[2018-09-07] MEDS ORDERED: PANTOPRAZOLE 40 MG INJ VIAL ONE (01:02)
[2018-09-07 01:15] VITALS: BP 127/68
--- NOTE | 2018-09-07 01:15 | NUR ---
Patient discharged with v/s stable. Written and verbal after care instructions given and explained. Patient alert, oriented and verbalized understanding of instructions. Ambulatory with steady gait. All questions addressed prior to discharge. ID band removed. Patient advised to follow up with PMD. Rx of TRAMADOL 50MG, OMEPRAZOLE 20MG, ZOFRAN 4MG given. Patient educated on indication of medication including possible reaction and side effects. Opportunity to ask questions provided and answered.
== END 2018-09-07 01:15 | disposition home or self-care (01) ==
LOC: MED 19:42
DX: K29.70 Gastritis, unspecified, without bleeding (principal); E11.9 Type 2 diabetes mellitus without complications; I10 Essential (primary) hypertension; Z79.899 Other long term (current) drug therapy; Z79.84 Long term (current) use of oral hypoglycemic drugs
CPT/HCPCS: 36415; 74177; 80053; 81001; 82948; 83690; 85025; 85610; 85730; 96361; 96374; 96375; 99285; C9113; J2270; J2405; J3490; J7030; Q9967

== ENCOUNTER 2020-01-21 22:07 | Emergency (ER) | payer OTHER ==
[~2020-01-21] VITALS: Ht 193 cm; Wt 137.9 kg
[~2020-01-21 22:07] MED LIST changes: -LOSA50TA27 PO; +LOSA50TA66 PO
[2020-01-21 22:14] VITALS: BP 172/102
[2020-01-21] MEDS ORDERED: oxyCODONE/APAP 5/325 MG 1 TAB TAB PO ONE (22:30)
[2020-01-21] MEDS ORDERED: CLINDAMYCIN 150 MG CAP PO ONE (22:30)
[2020-01-21 22:56] VITALS: BP 172/102
== END 2020-01-21 22:56 | disposition home or self-care (01) ==
LOC: MED 22:07
DX: H60.91 Unspecified otitis externa, right ear (principal); E11.9 Type 2 diabetes mellitus without complications; I10 Essential (primary) hypertension; Z79.84 Long term (current) use of oral hypoglycemic drugs; Z79.899 Other long term (current) drug therapy
CPT/HCPCS: 99283

== ENCOUNTER 2020-07-23 09:31 | Emergency (ER) | payer OTHER ==
[~2020-07-23] VITALS: Ht 188 cm; Wt 142.4 kg
[2020-07-23 09:35] VITALS: BP 177/96
[2020-07-23] MEDS ORDERED: KETOROLAC 30 MG/ML VIAL IVP ONE (09:50)
[2020-07-23] MEDS ORDERED: NACL 0.9% 1,000 ML IV ONE (09:50)
[2020-07-23 10:40] VITALS: BP 180/87
== END 2020-07-23 10:40 | disposition home or self-care (01) ==
LOC: MED 09:31
DX: R10.9 Unspecified abdominal pain (principal); E11.9 Type 2 diabetes mellitus without complications; I10 Essential (primary) hypertension; Z79.899 Other long term (current) drug therapy
CPT/HCPCS: 81002; 96361; 96374; 99283; J1885

== ENCOUNTER 2021-05-12 02:27 | Emergency (ER) | payer OTHER ==
[~2021-05-12] VITALS: Ht 193 cm; Wt 145.1 kg
[~2021-05-12 02:27] MED LIST changes: +GLIP5TAB14 PO; -GLIP5TAB4 PO
[2021-05-12 02:37] VITALS: BP 210/118
--- NOTE | 2021-05-12 02:37 | NUR ---
PT AMBULATED TO BED #9
--- NOTE | 2021-05-12 02:40 | NUR ---
PT BIB SELF FOR C/O 7/10 PAIN TO RIGHT GUM LINE, WHERE TEETH ARE ABSENT. PT ALSO REPORTS PREVIOUS "CHEST PRESSURE" WHEN TRYING TO LAY DOWN TO GO TO SLEEP. NOTED WITH ELEVATED BP 222/107. DENIES CHEST PAIN AT THIS TIME. PAIN DOES NOT RADIATE. DENIES NUMBNESS OR TINGLING. SPEECH IS CLEAR. DENIES SOB, FEVER, CHILLS, N/V/D. MED HX: HTN, DM
--- NOTE | 2021-05-12 02:57 | NUR ---
ERMD VERBAL ORDER LABETALOL 10 MG IVP ONCE. ORDER PLACED.
[2021-05-12 03:00] LABS: BASOPHILS # (AUTO) 0.1 K/uL (0.00-0.22); BASOPHILS % (AUTO) 0.8 % (0.0-2.0); EOSINOPHILS # (AUTO) 0.3 K/uL (0-0.4); EOSINOPHILS % (AUTO) 3.3 % (0.0-4.0); HEMATOCRIT 49.2 % (36-52); HEMOGLOBIN 16.3 g/dL (12.0-18.0); LYMPHOCYTES # (AUTO) 3.1 K/uL (2.0-11.5); LYMPHOCYTES % (AUTO) 36.8 % (20.5-51.1); MEAN CORPUSCULAR HEMOGLOBIN 28 pg (27-31); MEAN CORPUSCULAR HGB CONC 33 g/dL (33-37); MEAN CORPUSCULAR VOLUME 85.6 fL (80-94); MONOCYTES # (AUTO) 0.6 K/uL (0.8-1.0); MONOCYTES % (AUTO) 7.6 % (1.7-9.3); NEUTROPHILS # (AUTO) 4.4 K/uL (1.8-7.7); NEUTROPHILS % (AUTO) 51.5 % (42.2-75.2); PLATELET COUNT (AUTO) 132 K/uL (140-450); RED BLOOD CELL COUNT(AUTO) 5.74 MIL/uL (4.20-6.10); RED CELL DISTRIBUTION WIDTH 14.1 % (11.6-13.7); WHITE BLOOD COUNT (AUTO) 8.5 K/uL (4.8-10.8)
[2021-05-12] MEDS ORDERED: LABETALOL 100 MG/20 ML VIAL IVP ONE (03:00)
--- NOTE | 2021-05-12 03:01 | NUR ---
Dr. Brown examining patient.
[2021-05-12] MEDS ORDERED: KETOROLAC 15 MG/ML VIAL IVP ONE (03:05)
--- NOTE | 2021-05-12 03:13 | NUR ---
PT RETURN FROM RADIOLOGY
[2021-05-12 03:16] LABS: ALBUMIN 4.5 g/dL (3.4-5.0); ANION GAP 12.8 (8-16); CARBON DIOXIDE 28.1 mmol/L (21-32); CREATININE 0.9 mg/dL (0.6-1.3); POTASSIUM 3.9 mmol/L (3.5-5.1); TOTAL BILIRUBIN 0.4 mg/dL (0.0-1.0)
--- NOTE | 2021-05-12 04:30 | NUR ---
Patient appears to be resting comfortably in bed. Vital Signs within normal limits. Respirations even and unlabored. PT STATES "I FEEL SO MUCH BETTER."
[2021-05-12] MEDS ORDERED: PENI500T20 PO (05:30)
[2021-05-12] MEDS ORDERED: IBUP-1842 PO (05:31)
--- NOTE | 2021-05-12 05:39 | NUR ---
Patient appears to be resting comfortably in bed. Vital Signs within normal limits. Respirations even and unlabored. BP NOTED TO BE 173/103, PT REPORTS FEELING BETTER AND DENIES PAIN OR DISCOMFORT AT THIS TIME. ERMD MADE AWARE PRIOR.
[2021-05-12 05:47] VITALS: BP 173/103
--- NOTE | 2021-05-12 05:47 | NUR ---
Patient discharged with v/s stable. Written and verbal after care instructions given and explained. Patient alert, oriented and verbalized understanding of instructions. Ambulatory with steady gait. All questions addressed prior to discharge. ID band removed. Patient advised to follow up with PMD. Rx of MOTRIN AND PENICILLIN V POTASSIUM given. Patient educated on indication of medication including possible reaction and side effects. Opportunity to ask questions provided and answered.
== END 2021-05-12 05:47 | disposition home or self-care (01) ==
LOC: MED 02:27
DX: K04.7 Periapical abscess without sinus (principal); R07.9 Chest pain, unspecified; E11.9 Type 2 diabetes mellitus without complications; I10 Essential (primary) hypertension; Z79.899 Other long term (current) drug therapy
CPT/HCPCS: 36415; 71045; 80053; 84484; 85025; 85379; 93005; 96374; 96375; 99285; J1885; J3490

== ENCOUNTER 2022-01-30 09:09 | Emergency (ER) | payer OTHER ==
[~2022-01-30] VITALS: Ht 193 cm; Wt 142.9 kg
[~2022-01-30 09:09] MED LIST changes: +IBUP-1842 PO; +PENI500T20 PO
[2022-01-30 09:12] VITALS: BP 174/102
--- NOTE | 2022-01-30 09:17 | NUR ---
PATIENT AMBULATED WITH STEADY GAIT TO BED 8
--- NOTE | 2022-01-30 09:23 | NUR ---
DR. RODRIGUEZ AT BEDSIDE EVALUATING PATIENT.
[2022-01-30] MEDS ORDERED: COROTSOL LEFT EAR (09:27)
[2022-01-30] MEDS ORDERED: TRAM50TA1 PO (09:27)
--- NOTE | 2022-01-30 09:27 | NUR ---
46 y/o male with c/o left ear pain x 3days. Patient is stating his hearing is getting worse over the past few days. Patient was cleaning ear with alcohol and saw blood. Patient denies any trauma or injury to the ear. Patient has a 7/10 pain level and radiates to the side of his neck. Medical History: HTN, DM2 Medication: Glipizide, Metformin, Lisinopril NKDA
--- NOTE | 2022-01-30 09:43 | NUR ---
46/M PRESENTS TO ED WITH C/O LEFT EAR PAIN RADIATING DOWN TO LEFT NECK X3 DAYS. PATIENT STATES HE FEELS HEARING IS "MUFFLED" AND WORSENING TODAY, REPORTS HE ATTEMPTED TO CLEAN HIS EAR WITH ALCOHOL AND STATES HE SAW BLOOD. DENIES INJURY OR TRAUMA, REPORTS 7/10 "PULSATING" PAIN.
[2022-01-30 09:50] VITALS: BP 174/102
--- NOTE | 2022-01-30 09:50 | NUR ---
Patient discharged with v/s stable. Written and verbal after care instructions given. Patient alert, oriented and verbalized understanding of instructions. Ambulatory with steady gait. All questions addressed prior to discharge. ID band removed. Patient advised to follow up with PMD. Rx of Cortisporin Otic Solution and Tramadol given. Opportunity to ask questions provided and answered.
== END 2022-01-30 09:50 | disposition home or self-care (01) ==
LOC: MED 09:09
DX: H60.502 Unspecified acute noninfective otitis externa, left ear (principal); E11.9 Type 2 diabetes mellitus without complications; I10 Essential (primary) hypertension; Z79.899 Other long term (current) drug therapy
CPT/HCPCS: 99283

== ENCOUNTER 2022-04-01 22:13 | Emergency (ER) | payer OTHER ==
[~2022-04-01] VITALS: Ht 193 cm; Wt 139.3 kg
[~2022-04-01 22:13] MED LIST changes: +COROTSOL LEFT EAR; +METF-1274 PO; -METF1000 PO; +TRAM50TA1 PO
[2022-04-01 22:22] VITALS: BP 157/90
--- NOTE | 2022-04-01 22:22 | NUR ---
TO BED AMBULATORY
--- NOTE | 2022-04-01 22:30 | NUR ---
PT TAKEN TO BED 11
--- NOTE | 2022-04-01 22:35 | NUR ---
47 yo m bib self with c/c of 10/10 epigastric pain x5hrs. +n/v/d. pt states he was at a work picnic, states he did not eat alot. said maybe the salsa triggered something. pt is side lying, groaning and holding abd. bowel sounds active x4 quads, increased pain with touch. hx:dm rx:metformin nka
[2022-04-01] MEDS ORDERED: ONDANSETRON 4 MG/2 ML VIAL ONE ×2 (22:41)
[2022-04-01] MEDS ORDERED: PROCHLORPERAZINE 10 MG/2 ML VIAL ONE (22:41)
[2022-04-01] MEDS ORDERED: ACETAMINOPHEN EXTRA STRENGTH 500 MG TAB PO ONE (22:45)
[2022-04-01] MEDS ORDERED: MORPHINE SULFATE 2 MG/ML SYR ONE (22:51)
--- NOTE | 2022-04-01 22:52 | NUR ---
RECIEVED VERBAL ORDER TO START AN IV, GIVE 8MG OF ZOFRAN IVP, 10MG OF COMPAZINE IVP AND 4MG OF MORPHINE IVP AND NS 1000 WIDE OPEN. ORDERS CARRIED OUT.
--- NOTE | 2022-04-01 22:53 | NUR ---
IV TO RT AC 20 G ESTABLISHED, BLOOD COLECTED AND HANDED TO RADHA.
[2022-04-01] MEDS ORDERED: MORPHINE SULFATE 4 MG/ML SYR IVP ONE ×3 (22:55→23:05)
[2022-04-01 22:58] LABS: BASOPHILS % (AUTO) 0.3 % (0.0-2.0); EOSINOPHILS # (AUTO) 0.1 K/uL (0-0.4); EOSINOPHILS % (AUTO) 0.7 % (0.0-4.0); HEMATOCRIT 50.9 % (36-52); HEMOGLOBIN 16.5 g/dL (12.0-18.0); LYMPHOCYTES # (AUTO) 1.1 K/uL (2.0-11.5); LYMPHOCYTES % (AUTO) 7.5 % (20.5-51.1); MEAN CORPUSCULAR HEMOGLOBIN 28 pg (27-31); MEAN CORPUSCULAR HGB CONC 33 g/dL (33-37); MEAN CORPUSCULAR VOLUME 85.8 fL (80-94); MONOCYTES # (AUTO) 0.8 K/uL (0.8-1.0); MONOCYTES % (AUTO) 5.8 % (1.7-9.3); NEUTROPHILS # (AUTO) 12.3 K/uL (1.8-7.7); PLATELET COUNT (AUTO) 153 K/uL (140-450); RED BLOOD CELL COUNT(AUTO) 5.93 MIL/uL (4.20-6.10); RED CELL DISTRIBUTION WIDTH 14.3 % (11.6-13.7); WHITE BLOOD COUNT (AUTO) 14.3 K/uL (4.8-10.8)
[2022-04-01] MEDS ORDERED: ONDANSETRON 4 MG/2 ML VIAL IVP ONE (23:00)
[2022-04-01] MEDS ORDERED: PROCHLORPERAZINE 10 MG/2 ML VIAL IVP ONE (23:00)
--- NOTE | 2022-04-01 23:08 | NUR ---
PULLED THE 2MG VIAL OF MORPHINE INSTEAD OF 4MG VIAL. 2MG WERE STILL GIVEN ORDERED. STATED IT'S FINE.
[2022-04-01 23:21] LABS: ALBUMIN 4.4 g/dL (3.4-5.0); CREATININE 0.9 mg/dL (0.6-1.3); TOTAL BILIRUBIN 0.8 mg/dL (0.0-1.0)
[2022-04-01 23:30] LABS: ANION GAP 18.6 (8-16); CARBON DIOXIDE 20.1 mmol/L (21-32); POTASSIUM 3.7 mmol/L (3.5-5.1)
[2022-04-01 23:35] LABS: LIPASE 433 U/L (73-393)
[2022-04-01 23:36] LABS: NEUTROPHILS % (AUTO) 85.7 % (42.2-75.2)
--- NOTE | 2022-04-02 | NUR ---
pt appears to be resting. eyes are closed, opens to sound. equal rise and fall of chest wall. bed locked in lowest position, side rails x2 for safety.
[2022-04-02] MEDS ORDERED: ONDA-188 SL (00:12)
--- NOTE | 2022-04-02 00:12 | NUR ---
PT IS AWAKE AND ALERT. TONIO TURCIOS WENT TO SPEAK TO PT ABOUT RESULTS. PT STATES HE FEELS MUCH BETTER AND IS READY TO GO HOME.
[2022-04-02 00:45] VITALS: BP 157/90
== END 2022-04-02 00:45 | disposition home or self-care (01) ==
LOC: MED 22:13
DX: R11.2 Nausea with vomiting, unspecified (principal); R19.7 Diarrhea, unspecified; R10.13 Epigastric pain; E11.9 Type 2 diabetes mellitus without complications; I10 Essential (primary) hypertension; Z79.84 Long term (current) use of oral hypoglycemic drugs; Z79.899 Other long term (current) drug therapy
CPT/HCPCS: 36415; 80053; 82948; 83690; 84484; 85025; 93005; 96374; 96375; 99284; J0780; J2270; J2405

== ENCOUNTER 2023-03-04 16:04 | Emergency (ER) | payer OTHER ==
[~2023-03-04] VITALS: Ht 193 cm; Wt 137.0 kg
[~2023-03-04 16:04] MED LIST changes: +ONDA-188 SL; +TRAM-748 PO; -TRAM50TA1 PO
[2023-03-04 16:28] VITALS: BP 181/99
[2023-03-04] MEDS ORDERED: oxyCODONE/APAP 5/325 MG 1 TAB TAB PO ONE (19:45)
[2023-03-04] MEDS ORDERED: LIDOCAINE MPF 2% 100 MG/5 ML VIAL INJ ONE (19:45)
[2023-03-04] MEDS ORDERED: SULFAMETH/TRIMETH DS 800/160MG 1 TAB PO ONE (20:40)
[2023-03-04] MEDS ORDERED: cephALEXin 500 MG CAP PO ONE (20:40)
[2023-03-04] MEDS ORDERED: MORPHINE SULFATE 10 MG/ML VIAL IM ONE (21:20)
--- NOTE | 2023-03-04 21:37 | NUR ---
ERMD at bedside for procedure at this time.
[2023-03-04] MEDS ORDERED: ACET-5629 PO (21:53)
[2023-03-04] MEDS ORDERED: IBUP-2213 PO (21:53)
[2023-03-04] MEDS ORDERED: CEPH-588 PO (21:53)
[2023-03-04] MEDS ORDERED: SULF-59 PO (21:53)
--- NOTE | 2023-03-04 22:04 | NUR ---
Patient discharged with v/s stable. Written and verbal after care instructions given and explained. New rx percocet, cephalexin, ibuprofen, and bactrim. Patient verbalized understanding. Ambulatory with steady gait. All questions addressed prior to discharge. Advised to follow up with PMD.
[2023-03-04 22:06] VITALS: BP 150/91
== END 2023-03-04 22:04 | disposition home or self-care (01) ==
LOC: MED 16:04
DX: L02.215 Cutaneous abscess of perineum (principal); I10 Essential (primary) hypertension; E11.9 Type 2 diabetes mellitus without complications; Z79.4 Long term (current) use of insulin; Z79.899 Other long term (current) drug therapy
CPT/HCPCS: 10060; 96372; 99284; J2001; J2270

== ENCOUNTER 2024-06-04 22:26 | Emergency (ER) | payer OTHER ==
[~2024-06-04] VITALS: Ht 193 cm; Wt 136.1 kg
[~2024-06-04 22:26] MED LIST changes: +ACET-5629 PO; +CEPH-588 PO; -GLIP5TAB14 PO; +GLIP5TAB24 PO; +IBUP-2213 PO; +SULF-59 PO
[2024-06-04 22:39] VITALS: BP 174/106; PULSE 88; RESP 16; TEMP 97.8; O2SAT 98
[2024-06-04] MEDS: LIDOCAINE MPF 1% 10 MG/ML VIAL INJ ONE (23:41)
[2024-06-05] MEDS ORDERED: CEPH-588 PO (00:03)
[2024-06-05] MEDS ORDERED: IBUP-2213 PO (00:03)
[2024-06-05] MEDS: IBUPROFEN 600 MG TAB PO ONE (00:07)
[2024-06-05 00:19] VITALS: BP 174/106; PULSE 88; RESP 16; TEMP 97.8; O2SAT 98
== END 2024-06-05 00:19 | disposition home or self-care (01) ==
LOC: MED 22:26
DX: L02.411 Cutaneous abscess of right axilla (principal); E11.9 Type 2 diabetes mellitus without complications; I10 Essential (primary) hypertension; Z79.899 Other long term (current) drug therapy
CPT/HCPCS: 10060; 99283; J2001

== ENCOUNTER 2024-06-10 20:33 | Emergency (ER) | payer OTHER ==
[~2024-06-10] VITALS: Ht 193 cm; Wt 136.1 kg
[2024-06-10 21:01] VITALS: BP 126/78; PULSE 88; RESP 16; TEMP 98; O2SAT 98
== END 2024-06-10 22:07 | disposition home or self-care (01) ==
LOC: MED 20:33
DX: L02.411 Cutaneous abscess of right axilla (principal); Z48.01 Encounter for change or removal of surgical wound dressing; E11.9 Type 2 diabetes mellitus without complications; I10 Essential (primary) hypertension; Z79.899 Other long term (current) drug therapy
CPT/HCPCS: 99284